=== PATIENT | male | born 1965 | race Caucasian/White ===

== ENCOUNTER 2024-01-01 10:46 | Observation (INO) | payer SELFPAY ==
[~2024-01-01] VITALS: Ht 182.9 cm; Wt 110.3 kg
[2024-01-01 10:56] VITALS: BP 172/103
[2024-01-01 11:38] LABS: BASO # 0.1 10*3/uL (0.0-0.1); BASO % 0.7 % (0.0-1.0); EOS # 0.2 10*3/uL (0.0-0.4); EOS % 2.5 % (1.0-4.0); HEMATOCRIT 42.9 % (42.0-52.0); LYMPH # 2.2 10*3/uL (1.3-4.4); LYMPH % 30.4 % (27.0-41.0); MEAN CELL VOLUME 85.8 fl (80.0-94.0); MEAN CORPUSCULAR HGB 29.8 pg (27.0-31.0); MEAN CORPUSCULAR HGB CONC 34.7 g/dl (33.0-37.0); MEAN PLATELET VOLUME 9.4 fl (9.6-12.3); MONO # 0.6 10*3/uL (0.1-1.0); MONO % 8.2 % (3.0-9.0); NEUT # 4.1 10*3/uL (2.3-7.9); NEUT % 57.9 % (47.0-73.0); PLATELET COUNT AUTOMATED 207 10*3/uL (130-400); WHITE BLOOD COUNT 7.1 10*3/uL (4.8-10.8)
[2024-01-01 11:51] LABS: ACT PARTIAL THROMBO TIME 30.1 SECONDS (20.0-32.1)
[2024-01-01 11:58] LABS: ALKALINE PHOSPHATASE 67 U/L (46-116); BUN 10 mg/dl (9-23); CHLORIDE 105 mmol/L (98-107); POTASSIUM 4.2 mmol/L (3.4-5.1); SGPT/ALT 20 U/L (5-49); TOTAL PROTEIN 7.1 gm/dL (6.0-8.0)
[2024-01-01 12:03] VITALS: BP 157/97
[2024-01-01] MEDS ORDERED: ASPIRIN, CHEWABLE 81 MG TAB PO ONE (12:05)
[2024-01-01 12:09] VITALS: BP 124/84
[2024-01-01] MEDS ORDERED: Dicyclomine Hydrochloride 20 MG/10 ML OSYR PO STA (12:53)
[2024-01-01] MEDS ORDERED: Lidocaine Hydrochloride 15 ML UDC PO STA (12:53)
[2024-01-01] MEDS ORDERED: MG-AL HYDROXIDE/SIMETICONE 30 ML UDC PO STA (12:53)
[2024-01-01 13:26] VITALS: BP 126/86
[2024-01-01] MEDS ORDERED: ACETAMINOPHEN 325 MG TAB PO PRN (14:15)
[2024-01-01] MEDS ORDERED: MORPHINE Sulfate 2 MG/ML SYR IV PRN (14:15)
[2024-01-01] MEDS ORDERED: Ondansetron Hydrochloride 4 MG/2 ML VIAL IV PRN (14:15)
[2024-01-01 18:37] VITALS: BP 129/92
[2024-01-01 21:50] VITALS: BP 152/96
[2024-01-02] VITALS: BP 120/81; BP 97/56
[2024-01-02 06:23] LABS: BASO # 0.1 10*3/uL (0.0-0.1); BASO % 0.7 % (0.0-1.0); EOS # 0.3 10*3/uL (0.0-0.4); EOS % 2.8 % (1.0-4.0); HEMATOCRIT 44.9 % (42.0-52.0); LYMPH # 2.6 10*3/uL (1.3-4.4); LYMPH % 27.8 % (27.0-41.0); MEAN CELL VOLUME 84.7 fl (80.0-94.0); MEAN CORPUSCULAR HGB 30.4 pg (27.0-31.0); MEAN CORPUSCULAR HGB CONC 35.9 g/dl (33.0-37.0); MEAN PLATELET VOLUME 9.5 fl (9.6-12.3); MONO # 0.7 10*3/uL (0.1-1.0); MONO % 7.7 % (3.0-9.0); NEUT # 5.6 10*3/uL (2.3-7.9); NEUT % 60.6 % (47.0-73.0); PLATELET COUNT AUTOMATED 230 10*3/uL (130-400); WHITE BLOOD COUNT 9.2 10*3/uL (4.8-10.8)
[2024-01-02 06:58] LABS: ALKALINE PHOSPHATASE 69 U/L (46-116); BUN 11 mg/dl (9-23); CHLORIDE 103 mmol/L (98-107); CHOLESTEROL 217 mg/dL (<200); FREE T4 1.11 ng/dl (0.89-1.76); LDL CHOLESTEROL 139 mg/dL (9-159); POTASSIUM 3.8 mmol/L (3.4-5.1); SGPT/ALT 19 U/L (5-49); TOTAL PROTEIN 7.5 gm/dL (6.0-8.0); TRIGLYCERIDES 207 mg/dl (<150)
[2024-01-02 07:06] LABS: VITAMIN D, 25-HYDROXY 30.1 ng/mL (30-100)
[2024-01-02] MEDS ORDERED: Regadenoson 0.4 MG/5 ML SYR IV ONE (07:13)
[2024-01-02 08:00] VITALS: BP 111/78
[2024-01-02] MEDS ORDERED: ASPIRIN ENTERIC COATED 81 MG TAB PO SCH (10:00)
[2024-01-02] MEDS ORDERED: Enoxaparin Sodium 40 MG/0.4 ML SYR SC SCH (10:00)
[2024-01-02 12:00] VITALS: BP 129/83
[2024-01-02] MEDS ORDERED: ASPIRIN ADULT L81 M2 PO (14:41)
[2024-01-02] MEDS ORDERED: ATORVASTATIN CA40 M1 PO (15:39)
[2024-01-03] MEDS ORDERED: ATORVASTATIN CALCIUM 40 MG TABLET PO SCH (10:00)
== END 2024-01-02 16:25 | disposition home or self-care (01) ==
LOC: ED 10:46 → EDHOLD 13:23 → 4E 20:25
PROVIDERS: Nurse Practitioner; Registered Nurse; ADMIT Internal Medicine; ATTEND Internal Medicine
DX: R07.89 Other chest pain (principal); R53.83 Other fatigue; T73.3XXA Exhaustion due to excessive exertion, initial encounter; G47.33 Obstructive sleep apnea (adult) (pediatric); K21.9 Gastro-esophageal reflux disease without esophagitis; E66.9 Obesity, unspecified; F17.210 Nicotine dependence, cigarettes, uncomplicated; Z79.899 Other long term (current) drug therapy